=== PATIENT | female | born 1950 | race Caucasian/White ===

== ENCOUNTER 2021-06-04 04:37 | Emergency (ER) | payer BC ==
[~2021-06-04] VITALS: Ht 157.5 cm; Wt 53.5 kg
[~2021-06-04 04:37] MED LIST: CLONAZEPAM0.5 MG PO; NP THYROID30 MG PO
[2021-06-04] MEDS ORDERED: ONDANSETRON ODT4 MG PO (10:25)
--- NOTE | 2021-06-04 15:53 | EKG ---
[facility] [address] [facility] [place], [place] [address] Signed Sinus bradycardia Otherwise normal ECG When compared with ECG of 25-APR-2018 09:39, No significant change was found Confirmed by BEN HILL MD ([id number]) on 06/04/2021 3:53:41 PM Electronically Signed By: BEN HILL MD 06/04/21 1553 PATIENT NAME: DIO SORENSON ANN Electrocardiogram DATE OF : 54 PHYSICIAN: BEN HILL MD REPORT #: [id number] REPORT IS CONFIDENTIAL AND NOT TO BE RELEASED WITHOUT AUTHORIZATION
== END 2021-06-04 10:52 | disposition home or self-care (01) ==
LOC: ED 04:37
DX: U07.1 COVID-19 (principal); R55 Syncope and collapse; Z87.891 Personal history of nicotine dependence; Z88.1 Allergy status to other antibiotic agents; Z79.899 Other long term (current) drug therapy
CPT/HCPCS: 70450; 71045; 80053; 83735; 84484; 85025; 93005; 93010; 96361; 96374; 99284-25; C9803; J2405; J7030; M0243; Q0244; U0003

== ENCOUNTER 2025-03-23 10:02 | Emergency (ER) | payer MEDICARE, OTHER ==
[~2025-03-23] VITALS: Ht 157.5 cm; Wt 55.4 kg
[~2025-03-23 10:02] MED LIST changes: +ONDANSETRON ODT4 MG PO
[2025-03-23] MEDS ORDERED: SODIUM CHLORIDE 0.9% 1,000 ML IV PRN (10:30)
[2025-03-23 10:45] LABS: BASOPHILS 0.5 % (0.1-1.2); EOSINOPHILS 1.7 % (0.7-5.8); HEMATOCRIT 37.5 % (34.1-44.9); HEMOGLOBIN 12.6 g/dL (11.2-15.7); LYMPHOCYTES 25.5 % (19.3-51.7); MCH 31.1 PG (25.6-32.2); MCHC 33.6 g/dL (32.2-35.5); MCV 92.6 fL (79.4-94.8); MONOCYTES 7.9 % (4.7-12.5); NEUTROPHILS 64.3 % (34.0-71.1); PLATELET COUNT 195 K/uL (182-369); RBC 4.05 M/uL (3.93-5.22)
[2025-03-23 11:06] LABS: ALBUMIN 3.8 g/dL (3.4-5.0); ALBUMIN/GLOBULIN RATIO 1.23 (1.1-2.4); ANION GAP 14.3 (7-21); BILIRUBIN, TOTAL 0.4 mg/dL (0.2-1.0); BUN/CREATININE RATIO 23.15 (6.0-28.6); CREATININE, SERUM 0.95 mg/dL (0.55-1.02); POTASSIUM 4.3 mmol/L (3.5-5.1); PROTEIN, TOTAL 6.9 g/dL (6.4-8.2)
[2025-03-23 12:17] LABS: BILIRUBIN, URINE NEGATIVE (negative); BLOOD/HGB, URINE NEGATIVE (Negative); KETONE, URINE NEGATIVE (Negative); LEUK ESTERASE, URINE NEGATIVE (negative); NITRITE, URINE NEGATIVE (negative); PH, URINE 7.5 (5-7)
[2025-03-23 15:35] VITALS: BP 111/67
[2025-03-23] MEDS ORDERED: IBUPROFEN 600 MG TAB PO ONE (15:45)
[2025-03-23] MEDS ORDERED: HYDROCODONE/ACETA 5/325 TAB PO ONE (15:45)
== END 2025-03-23 15:44 | disposition home or self-care (01) ==
LOC: ED 10:02
PROVIDERS: Emergency Medicine
DX: K57.30 Diverticulosis of large intestine without perforation or abscess without bleeding (principal); N20.0 Calculus of kidney; M19.90 Unspecified osteoarthritis, unspecified site; Z87.891 Personal history of nicotine dependence
CPT/HCPCS: 36415; 74177; 80053; 81003; 83690; 85025; 99284-25; A9270; J7030

== ENCOUNTER 2025-06-22 05:40 | Day surgery (SDC) | payer MEDICARE, OTHER ==
[~2025-06-22] VITALS: Ht 157.5 cm; Wt 54.9 kg
[~2025-06-22 05:40] MED LIST changes: +LACTATED RINGER'S 1,000 ML IV SCH
[2025-06-22 05:59] VITALS: BP 121/65
[2025-06-22] MEDS ORDERED: CEFAZOLIN SODIUM 2 GM in SODIUM CHLORIDE 0.9% 100 ML IV SCH (07:00)
[2025-06-22] MEDS ORDERED: LIDOCAINE HCL 1% 5 ML SDV INJ ONE (07:00)
[2025-06-22] MEDS ORDERED: IBLOOD GLUCOSE TEST STRIP 1 EA TEST VI PRN ×2 (07:00→08:00)
[2025-06-22] MEDS ORDERED: LIDOCAINE HCL 2% 5 ML SDV ONE (07:08)
[2025-06-22] MEDS ORDERED: ROCURONIUM BROMIDE 50 MG/5 ML SYR ONE (07:08)
[2025-06-22] MEDS ORDERED: fentaNYL citrate 100 MCG/2 ML VIAL ONE (07:09)
[2025-06-22] MEDS ORDERED: ACETAMINOPHEN 1,000 MG/100 ML VIAL ONE (07:10)
[2025-06-22] MEDS ORDERED: KETOROLAC TROMETHAMINE 30 MG/ML VIAL ONE (07:12)
[2025-06-22] MEDS ORDERED: DEXAMETHASONE SOD PHOS 4 MG/ML VIAL ONE (07:12)
--- NOTE | 2025-06-22 07:40 | NUR ---
PT NOT AVAILABLE FOR VISIT. PROVIDED PRAYER.
[2025-06-22] MEDS ORDERED: SUGAMMADEX SODIUM 200 MG/2 ML ML ONE (07:46)
[2025-06-22] MEDS ORDERED: GLYCOPYRROLATE 1 MG/5 ML MDV ONE (07:48)
[2025-06-22] MEDS ORDERED: HYDROmorphone HCL 1 MG/ML SYR IV PRN (08:00)
[2025-06-22] MEDS ORDERED: fentaNYL citrate 50 MCG/ML SDV IV PRN (08:00)
[2025-06-22] MEDS ORDERED: NALOXONE HCL 0.4 MG SYR IV PRN ×2 (08:00→08:30)
[2025-06-22] MEDS ORDERED: KETOROLAC TROMETHAMINE 30 MG/ML VIAL IV ONE (08:30)
[2025-06-22] MEDS ORDERED: HYDROCODONE/ACETA 5/325 TAB PO PRN (08:30)
--- NOTE | 2025-06-22 08:54 | NUR ---
06/22/25 0854 Cyndy Carver 0842- PT PRESENTS TO PACU, SEMI STILES POSITION, REACTIVE TO STIMULUS. BREATHING EVEN AND NON LABORED ON 6L O2 PER MASK. LR INFUSING TO RFA IV. ABD SOFT, NON DISTENDED. VAGINAL PACKING IN PLACE, WITH VITOR PAD. ALL MONITORS IN PLACE. 0845- PT WAKES ON OWN, DROWSY. DENIES PAIN OR NAUSEA. 0850- PT MOVED TO ROOM AIR, HAS NO COMPLAINTS.
[2025-06-22 09:18] VITALS: BP 122/59
--- NOTE | 2025-06-22 09:26 | NUR ---
0997 PT ARRIVED TO DAY SURGERY FROM PACU VIA STREACHER. PT AWAKE AND ORIENTED AND SIPPING ON WATER. BREATHING EQUAL AND UNLABORED. PT REPORTS NO PAIN OR NAUSEA AT THIS TIME. PT HAS SUTURES AND PP IN PLACE. PT HAS NO HAYWARD CATH IN PLACE WAS REMVOED IN OR, AND PT HAD PACKING REMOVED IN PACU. PT HAS WATER IN HAND, AND JELLO AT BEDSIDE. PT HAS CALL LIGHT WITHIN REACH. BED IS LOW AND LOCKED. REVIEWED DISCHARGE CRITERIA FOR TODAY AND POST CATHETER INFORMATION. PT STATES UNDERSTANDING. 0972 CALLED PT SPOUSE PER REQUEST TO LET THEM KNOW SURGERY WENT WELL AND THAT PT IS BACK TO DAY SURGERY.
[2025-06-22 10:11] VITALS: BP 115/69
[2025-06-22 11:16] VITALS: BP 116/62
--- NOTE | 2025-06-22 12:03 | NUR ---
1125 PT ABLE TO AMBULATE TO BATHROOM WITH STEADY GAIT. PT ABLE TO VOID 300 MLS OF LOBO RED URINE. PT AMBLE TO AMBULATE BACK TO ROOM. IV REMOVED FOR DISCHARGE. PT REPORTS NO PAIN AT THIS TIME. OR NAUSEA. PT SPOUSE IN ROOM, PT SPOUSE IN ROOM ASSISTING GETTING DRESSED. 1130 DISCHARGE INFORMATION GONE OVER WITH PT AND SPOUSE. NO QUESTIONS AT THIS TIME. 1140 PT DISCHARGED FROM DAY SURGERY VIA WHEELCHAIR TO THE FRONT OF THE HOSPITAL TO PT'S SPOUSE'S CAR.
== END 2025-06-22 11:40 | disposition home or self-care (01) ==
LOC: OPS 05:40 → DS 05:40 → OPS 07:30 → DS 07:30 → OPS 11:40
PROVIDERS: ATTEND Obstetrics & Gynecology
PROC: 0JQC0ZZ Repair Pelvic Region Subcutaneous Tissue and Fascia, Open Approach (ICD-10-PCS; principal; 2025-06-22 07:30)
DX: N81.11 Cystocele, midline (principal); E07.9 Disorder of thyroid, unspecified; Z88.8 Allergy status to other drugs, medicaments and biological substances; Z87.891 Personal history of nicotine dependence; Z79.890 Hormone replacement therapy
CPT/HCPCS: 00942; J0131; J0688; J1100; J1171; J1885; J2003; J2405; J2704; J3010; J3490; J7121